=== PATIENT | male | born 1965 | race Caucasian/White ===

== ENCOUNTER 2022-01-09 11:07 | Inpatient (IN) | payer BC ==
[~2022-01-09] VITALS: Ht 188 cm; Wt 123.8 kg
[2022-01-09 12:04] LABS: HEMOGLOBIN 15.1 gm/dl (14.0-17.5)
[2022-01-09] MEDS ORDERED: AMLODIPINE BESYL5 MG PO (13:55)
[2022-01-09] MEDS ORDERED: ALLOPURINOL100 MG PO (13:55)
[2022-01-09] MEDS ORDERED: DULOXETINE HCL60 MG PO (13:56)
[2022-01-09] MEDS ORDERED: ASPIRIN EC81 MG PO (13:58)
[2022-01-09] MEDS ORDERED: OMEPRAZOLE40 MG PO (13:58)
[2022-01-09] MEDS ORDERED: LISINOPRIL20 MG PO (13:58)
[2022-01-09 20:40] LABS: ADENOVIRUS F 40/41 Not Detected (Negative); ASTROVIRUS Not Detected (Negative); CAMPYLOBACTER Not Detected (Negative); CRYPTOSPORIDIUM Not Detected (Negative); E.COLI 0157 Not Detected (Negative); ENTAMOEBA HISTOLYTICA Not Detected (Negative); ENTEROAGGREGATIVE E.COLI (EAEC Not Detected (Negative); ENTEROPATHOGENIC E.COLI (EPEC) Not Detected (Negative); ENTEROTOXIGENIC E.COLI (ETEC) Not Detected (Negative); GIARDIA LAMBLIA Not Detected (Negative); NOROVIRUS GI/GII Not Detected (Negative); PLESIOMONAS SHIGELLOIDES Not Detected (Negative); ROTOVIRUS A Not Detected (Negative); SALMONELLA Not Detected (Negative); SAPOVIRUS Not Detected (Negative); SHIG/ENTEROINVAS.ECOLI (EIEC) Not Detected (Negative); SHIGA-LIK TOX.PRO.E.COLI (STEC Not Detected (Negative); VIBRIO Not Detected (Negative); VIBRIO CHOLERAE Not Detected (Negative); YERSINIA ENTEROCOLITICA Not Detected (Negative)
[2022-01-10 07:09] LABS: HEMOGLOBIN 12.5 gm/dl (14.0-17.5); RED BLOOD COUNT 4.19 M/UL (4.20-5.50); WHITE BLOOD COUNT 5.1 K/UL (4.5-11.0)
[2022-01-10 08:15] LABS: CLOSTRIDIUM DIFFICILE TOX A/B Not Detected (Negative)
[2022-01-11 06:43] LABS: HEMOGLOBIN 11.7 gm/dl (14.0-17.5); RED BLOOD COUNT 3.86 M/UL (4.20-5.50); WHITE BLOOD COUNT 4.2 K/UL (4.5-11.0)
[2022-01-12 02:40] LABS: HEMOGLOBIN 11.5 gm/dl (14.0-17.5); RED BLOOD COUNT 3.77 M/UL (4.20-5.50)
[2022-01-12 03:24] LABS: BUN/CREATININE RATIO 22 (0-10)
[2022-01-13 04:03] LABS: HEMOGLOBIN 11.1 gm/dl (14.0-17.5); RED BLOOD COUNT 3.72 M/UL (4.20-5.50); WHITE BLOOD COUNT 5.2 K/UL (4.5-11.0)
[2022-01-13 04:28] LABS: BUN/CREATININE RATIO 15 (0-10)
[2022-01-14 02:56] LABS: HEMOGLOBIN 12.2 gm/dl (14.0-17.5); RED BLOOD COUNT 4.01 M/UL (4.20-5.50); WHITE BLOOD COUNT 5.9 K/UL (4.5-11.0)
[2022-01-14 03:31] LABS: BUN/CREATININE RATIO 10 (0-10)
[2022-01-15 03:32] LABS: HEMOGLOBIN 11.2 gm/dl (14.0-17.5); RED BLOOD COUNT 3.73 M/UL (4.20-5.50); WHITE BLOOD COUNT 6.1 K/UL (4.5-11.0)
[2022-01-15 04:16] LABS: BUN/CREATININE RATIO 13 (0-10)
== END 2022-01-15 10:16 | disposition home or self-care (01) | DRG 684 ==
LOC: ER1 11:07 → M/S 13:23 → CDU 13:23 → M/S 15:40
PROVIDERS: Internal Medicine; Internal Medicine Gastroenterology; Internal Medicine Nephrology; Physician Assistant; ADMIT Internal Medicine
PROC: 0DBN8ZX Excision of Sigmoid Colon, Via Natural or Artificial Opening Endoscopic, Diagnostic (ICD-10-PCS; 2022-01-14)
PROC: 0DBB8ZX Excision of Ileum, Via Natural or Artificial Opening Endoscopic, Diagnostic (ICD-10-PCS; principal; 2022-01-14 12:30)
DX: N17.9 Acute kidney failure, unspecified (principal); R19.7 Diarrhea, unspecified; E86.0 Dehydration; M10.9 Gout, unspecified; I10 Essential (primary) hypertension; K64.8 Other hemorrhoids; K59.00 Constipation, unspecified; N28.1 Cyst of kidney, acquired; F32.A Depression, unspecified; E83.42 Hypomagnesemia; M79.7 Fibromyalgia; E66.9 Obesity, unspecified; Z96.652 Presence of left artificial knee joint; Z88.2 Allergy status to sulfonamides; Z79.82 Long term (current) use of aspirin; Z79.899 Other long term (current) drug therapy; Z88.1 Allergy status to other antibiotic agents; Z98.890 Other specified postprocedural states; Z83.79 Family history of other diseases of the digestive system; Z68.35 Body mass index [BMI] 35.0-35.9, adult
CPT/HCPCS: 36415; 70450; 80048; 80053; 81001; 82436; 82550; 82553; 82570; 83735; 83874; 83880; 84133; 84156; 84300; 84484; 85025; 85027; 87081; 87324; 87507; 87880; 93005; 99285; C9113; J2704; J3475; J7040; P9047

== ENCOUNTER → 2022-01-19 | Outpatient (CLI) | payer BC ==
[~2022-01-19] MED LIST: ALLOPURINOL100 MG PO; AMLODIPINE BESYL5 MG PO; ASPIRIN EC81 MG PO; DULOXETINE HCL60 MG PO; LISINOPRIL20 MG PO; OMEPRAZOLE40 MG PO
== END ==
LOC: LAB 08:16
PROVIDERS: Internal Medicine
DX: N17.9 Acute kidney failure, unspecified (principal)
CPT/HCPCS: 36415; 80048